=== PATIENT | female | born 1935 | race Caucasian/White ===

== ENCOUNTER 2016-09-04 13:42 | Inpatient (IN) | payer MEDICARE, OTHER ==
[~2016-09-04] VITALS: Ht 149.9 cm; Wt 65.8 kg
[~2016-09-04 13:42] MED LIST: AMLO-147 PO; ASPI-664 PO; CALC-378 PO; DICL100G37 TOP; DOCU-144 PO; ENAL20TA PO; FER325 PO; GABA100C14 PO; GLIP5TAB82 PO; METF-382 PO; PRAV10TA43 PO; SITA50TA2 PO; [UNRECOGNIZED DRUG - CODE] TP
[2016-09-04 15:57] VITALS: BP 146/67; PULSE 77; RESP 18
[2016-09-04 16:06] VITALS: Ht 149.9 cm; Wt 65.8 kg
[2016-09-04] MEDS ORDERED: DONE10TA7 PO (17:19)
[2016-09-04] MEDS ORDERED: VANCOMYCIN IV PER PHARMACY XX SCH (17:30)
[2016-09-04] MEDS ORDERED: NITROGLYCERIN (SL) 0.4 MG TAB SL PRN (17:30)
[2016-09-04] MEDS ORDERED: ONDANSETRON 4 MG INJ IV PRN (17:30)
[2016-09-04] MEDS ORDERED: hydrALAzine 20 MG INJ IV PRN (17:30)
[2016-09-04] MEDS ORDERED: HYDROCODONE/APAP (5/325) TAB PO PRN (17:30)
[2016-09-04] MEDS ORDERED: DOCUSATE SODIUM 100 MG CAP PO PRN (17:30)
[2016-09-04] MEDS ORDERED: MAGNESIUM HYDROXIDE 30ML CUP PO PRN (17:30)
[2016-09-04] MEDS ORDERED: ALBUTEROL/IPRATROPIUM (NEB) 3 ML AMP HHN PRN (17:30)
[2016-09-04] MEDS ORDERED: NA PHOSPHATE/BIPHOS 133 ML ENEMA PR PRN (17:30)
[2016-09-04] MEDS ORDERED: NACL 0.9% 3 ML SYG IV SCH (17:30)
[2016-09-04] MEDS ORDERED: ACETAMINOPHEN 325 MG TAB PO PRN (17:30)
[2016-09-04] MEDS ORDERED: morphine 2 MG INJ IV PRN (17:30)
[2016-09-04] MEDS ORDERED: LORAZEPAM 2 MG INJ IV PRN (17:30)
[2016-09-04] MEDS ORDERED: VANCOMYCIN 1.25 GM in SOD CHLORIDE 0.9% 250 ML IVPB ONE (18:00)
[2016-09-04] MEDS ORDERED: GLUCOSE GEL 15 GRAM TUBE BUCCAL PRN (18:30)
[2016-09-04] MEDS ORDERED: GLUCOSE GEL 15 GRAM TUBE PO PRN ×2 (18:30)
[2016-09-04] MEDS ORDERED: GLUCAGON 1 MG INJ IM PRN (18:30)
[2016-09-04] MEDS ORDERED: DEXTROSE 50% 50 ML SYRINGE IV PRN ×2 (18:30)
[2016-09-04] MEDS: CALCIUM/VITAMIN D (500/200) TAB PO SCH ×2 (18:34→20:25)
[2016-09-04] MEDS: SOD CHLORIDE 0.45% 1,000 ML IV SCH (18:35)
[2016-09-04 18:41] LABS: CREATININE 0.93 mg/dl (0.44-1.00)
[2016-09-04] MEDS: GUAIFENESIN 20 MG/ML 5ML CUP PO PRN (20:08)
[2016-09-04] MEDS: ATORVASTATIN 10 MG TAB PO SCH (20:25)
[2016-09-04] MEDS: FAMOTIDINE 20 MG INJ IV SCH (20:25)
[2016-09-04] MEDS: GABAPENTIN 100 MG CAP PO SCH (20:25)
[2016-09-04] MEDS: DONEPEZIL 10 MG TAB PO SCH (20:26)
[2016-09-04] MEDS: INSULIN ASPART [NOVOLOG] 3 ML PEN SC SCH (20:26)
[2016-09-04] MEDS: DICLOFENAC SODIUM 1% GEL 100 GM TUBE TP SCH (20:28)
[2016-09-04 20:29] VITALS: BP 147/71; RESP 16
[2016-09-05] MEDS: ACCUCHECK XX SCH (02:00)
[2016-09-05] MEDS: SOD CHLORIDE 0.45% 1,000 ML IV SCH ×2 (05:40→11:36)
[2016-09-05 05:47] LABS: POTASSIUM 3.8 mmol/L (3.5-5.1)
[2016-09-05 05:49] LABS: CREATININE 0.83 mg/dl (0.44-1.00)
[2016-09-05 05:50] LABS: CALCIUM 8.7 mg/dl (8.4-10.2); CHOL/HDL RATIO 4.8 RATIO; MAGNESIUM 1.8 mg/dl (1.7-2.5); PHOSPHORUS 3.2 mg/dl (2.5-4.9)
[2016-09-05 06:20] LABS: THYROID STIMULATING HORMONE 3.81 MIU/L (0.465-4.680)
[2016-09-05 06:57] LABS: BASOPHILS % 0.6 % (0.0-2.0); EOSINOPHILS # 0.3 10^3/ul (0.0-0.5); EOSINOPHILS % 4.9 % (0.0-7.0); HEMATOCRIT 33.6 % (37.0-47.0); HEMOGLOBIN 10.8 g/dl (12.0-16.0); LYMPHOCYTES % 19.6 % (15.0-51.0); MEAN CORPUSCULAR HEMOGLOBIN 28.5 pg (29.0-33.0); MEAN CORPUSCULAR HGB CONC 32.1 g/dl (32.0-37.0); MEAN CORPUSCULAR VOLUME 88.7 fl (82.0-101.0); MEAN PLATELET VOLUME 11.3 fl (7.4-10.4); MONOCYTE # 0.5 10^3/ul (0.3-0.9); MONOCYTES % 8.7 % (0.0-11.0); NEUTROPHIL # 3.5 10^3/ul (1.6-7.5); NEUTROPHILS % 65.6 % (39.0-77.0); PLATELET COUNT 260 10^3/UL (140-440); RED BLOOD COUNT 3.79 10^6/ul (4.20-5.40); RED CELL DISTRIBUTION WIDTH 14.2 % (11.5-14.5); WHITE BLOOD COUNT 5.3 10^3/ul (4.8-10.8)
[2016-09-05 07:22] VITALS: BP 175/77; RESP 18
--- NOTE | 2016-09-05 07:38 | HP ---
DATE OF ADMISSION: 09/04/2016 CHIEF COMPLAINT: Right facial swelling. HISTORY OF PRESENT ILLNESS: An 81-year-old female with past medical history of hypertension, type 2 diabetes, high cholesterol, and dementia who was sent over from an outside hospital due to insuranc e purposes. She presented to the outside hospital earlier today after complaining that she develope d fever 8 days ago and also started having facial swelling that began 5 days ago. She says she has been able to both drink liquids and eat food normally. She denies any trauma to the area. She has dentures but denies any pain to the dentures. She has not been able to see a primary care doctor no r dentist over the last 7 or 8 days. The swelling has been getting progressively worse but denied a ny chest pain or shortness of breath. No fevers or chills. No nausea or vomiting. No upper or low er GI bleeding. No diarrhea or constipation. When she went to the outside hospital earlier today, she had a CAT scan performed, specifically CT of the neck with IV contrast showed right parotiditis, so the right parotid gland was inflamed. There was also sinus mucosal thickening but no focal flui d collection. She was given a dose of IV antibiotics, vancomycin. She was also found with some mil d renal insufficiency and leukocytosis as well. PAST MEDICAL HISTORY: As stated above. ALLERGIES: NO KNOWN DRUG ALLERGIES. MEDICATIONS AT HOME: 1. Donepezil 10 mg at bedtime. 2. Ferrous sulfate 325 mg daily. 3. Amlodipine 10 mg daily. 4. Enalapril 20 mg daily. 5. Pravastatin 10 mg daily. 6. Aspirin 81 mg daily. 7. Voltaren gel 2 grams topically t.i.d. 8. Gabapentin 100 mg at bedtime. 9. Colace 100 mg daily. 10. Metformin 500 mg b.i.d. 11. Januvia 50 mg daily. 12. Hydrocortisone 1%. PAST SURGICAL HISTORY: She has had a hernia repair in the past. FAMILY HISTORY: Noncontributory. SOCIAL HISTORY: Negative for smoking, drinking, or IV drug abuse. PHYSICAL EXAMINATION: VITAL SIGNS: T-max 98.9, pulse 77, respirations 18, blood pressure 146/67, saturating at 99% on rinku m air. GENERAL: The patient is lying in bed, answering questions appropriately, in no acute distress. HEENT: Pupils equal, round, react to light. Extraocular muscles intact. She has got some right fa cial swelling, tenderness to palpation in the right cheek area. NECK: Supple, no thyromegaly. LUNGS: Clear to auscultation bilaterally. CARDIOVASCULAR: S1, S2 heard. No rubs or gallops. ABDOMEN: Soft, nontender, nondistended. Normal bowel sounds. No rebound or guarding. MUSCULOSKELETAL: No lower extremity edema bilaterally. NEUROLOGIC: No focal deficits. PSYCHIATRIC: Normal mood and affect. LABORATORIES: WBC 16.4, hemoglobin 10.8, hematocrit 32.9, platelets 298. Sodium 137, potassium 3.8 , chloride 100, CO2 of 25, BUN of 70, creatinine 1.1, glucose 133. UA showed trace leukocyte estera se positive. ASSESSMENT AND PLAN: This is an 81-year-old female coming in with right facial swelling and fever f or the last 5 to 8 days with signs of right parotid gland inflammation and infection. 1. Right facial swelling again secondary to right parotitis. We will put her on IV vancomycin for now, put her on IV fluids, give her pain control medications as well, [place], Tylenol, and morphine p .r.n. We will check TSH, A1c, lipid panel. Consider infectious disease consult as well. If there are any swallowing difficulties, we may need to get ENT, but for now, the patient appears to be hand ling liquids and solids. 2. Essential hypertension. Again, we will continue the patient's home medication as well. She is on hydralazine IV p.r.n. systolic greater than 160. 3. Type 2 diabetes. Check an A1c. Put her back on sliding scale insulin. 4. High cholesterol. Check a lipid panel. Continue cholesterol medicine. 5. Gastrointestinal prophylaxis, H2 edith. 6. Deep venous thrombosis prophylaxis. She is on SCDs. Get PT and OT consults as well. Dictated By: SERA ROWLEY Conf#: [id number] DID#: [id number]
[2016-09-05] MEDS: INSULIN ASPART [NOVOLOG] 3 ML PEN SC SCH ×4 (08:15→21:00)
[2016-09-05] MEDS: FERROUS SULFATE (EC) 325 MG TAB PO SCH (08:26)
[2016-09-05] MEDS: ASPIRIN (EC) 81 MG TAB PO SCH (08:26)
[2016-09-05] MEDS: FAMOTIDINE 20 MG INJ IV SCH (08:26)
[2016-09-05] MEDS: AMLODIPINE 10 MG TAB PO SCH (08:26)
[2016-09-05] MEDS: CALCIUM/VITAMIN D (500/200) TAB PO SCH ×3 (08:26→21:33)
[2016-09-05] MEDS: DICLOFENAC SODIUM 1% GEL 100 GM TUBE TP SCH ×3 (08:29→21:33)
--- NOTE | 2016-09-05 09:28 | PN ---
Date/Time of Note Date/Time of Note DATE: 09/05/16 TIME: 09:23 Assessment/Plan VTE Prophylaxis VTE Prophylaxis Intervention: SCD's Lines/Catheters IV Catheter Type (from Nrs): Peripheral IV Assessment/Plan Chief Complaint/Hosp Course ASSESSMENT AND PLAN: This is an 81-year-old female coming in with right facial swelling and fever for the last 5 to 8 days with signs of right parotid gland inflammation and infection. 1. Right facial swelling - again secondary to right parotitis - improving - continue IV vancomycin for now, IV fluids, give her pain control medications as well, [place], Tylenol, and morphine p.r.n. If there are any swallowing difficulties, we may need to get ENT, but for now, the patient appears to be handling liquids and solids. 2. Essential hypertension - improved - continue the patient's home medication as well. She is on hydralazine IV p.r.n. systolic greater than 160. 3. Type 2 diabetes.A1c = 6.3 - Put her back on sliding scale insulin. 4. High cholesterol - f/u lipid panel. Continue cholesterol medicine. 5. Gastrointestinal prophylaxis, H2 edith. 6. Deep venous thrombosis prophylaxis. She is on SCDs. F/u PT and OT consult rec's Problems: Subjective 24 Hr Interval Summary Free Text/Dictation Pt has less facial pain, no fevers, tolerating diet, no SOB. Exam/Review of Systems Vital Signs Vitals Vital Signs Date Time Temp Pulse Resp B/P Pulse Ox O2 Delivery O2 Flow Rate FiO2 09/05/16 07:22 98.1 67 18 175/77 94 09/04/16 15:57 Room Air Intake and Output 09/04/16 09/04/16 09/05/16 15:00 23:00 07:00 Intake Total 825 ml Balance 825 ml Exam GENERAL: The patient is walking in hallway, NAD HEENT: Pupils equal, round, react to light. Extraocular muscles intact. Less tenderness and less right facial swelling. NECK: Supple, no thyromegaly. LUNGS: Clear to auscultation bilaterally. CARDIOVASCULAR: S1, S2 heard. No rubs or gallops. ABDOMEN: Soft, nontender, nondistended. Normal bowel sounds. No rebound or guarding. MUSCULOSKELETAL: No lower extremity edema bilaterally. NEUROLOGIC: No focal deficits. PSYCHIATRIC: Normal mood and affect. Results Result Diagram: 09/05/16 0445 09/05/16 0445 Results 24 hrs Laboratory Tests Test 09/04/16 17:35 09/04/16 18:27 09/04/16 20:24 09/05/16 04:45 Blood Urea Nitrogen 14 14 Creatinine 0.93 0.83 Free Thyroxine 1.37 Bedside Glucose 132 148 Anion Gap 13 Basophils # 0.0 Basophils % 0.6 Calcium Level 8.7 Carbon Dioxide Level 25 Chloride Level 106 Cholesterol Level 127 Cholesterol/HDL Ratio 4.8 Eosinophils # 0.3 Eosinophils % 4.9 Glucose Level 123 HDL Cholesterol 26 L Hematocrit 33.6 L Hemoglobin 10.8 L Hemoglobin A1c 6.3 H LDL Cholesterol, Calculated 77 Lymphocytes # 1.0 Lymphocytes % 19.6 Magnesium Level 1.8 Mean Corpuscular Hemoglobin 28.5 L Mean Corpuscular Hemoglobin Concent 32.1 Mean Corpuscular Volume 88.7 Mean Platelet Volume 11.3 H Monocytes # 0.5 Monocytes % 8.7 Neutrophils # 3.5 Neutrophils % 65.6 Nucleated Red Blood Cells # 0.0 Nucleated Red Blood Cells % 0.0 Phosphorus Level 3.2 Platelet Count 260 Potassium Level 3.8 Red Blood Count 3.79 L Red Cell Distribution Width 14.2 Sodium Level 140 Thyroid Stimulating Hormone (TSH) 3.810 Triglycerides Level 119 White Blood Count 5.3 Test 09/05/16 08:20 Bedside Glucose 104 Medications Medications Current Medications Ondansetron HCl (Zofran Inj) 4 mg Q6H PRN IV NAUSEA AND/OR VOMITING; Start 09/04 at 17:30 Acetaminophen (Tylenol Tab) 650 mg Q6H PRN PO PAIN LEVEL 1-3 OR FEVER; Start at 17:30 Acetaminophen/ Hydrocodone Bitart ([place] (5/325)) 1 tab Q6H PRN PO MODERATE PAIN LEVEL 4-6; Start 09/04/16 at 17:30 Morphine Sulfate (morphine) 2 mg Q4H PRN IV SEVERE PAIN LEVEL 7-10; Start at 17:30 Docusate Sodium (Colace) 100 mg Q12H PRN PO CONSTIPATION; Start 09/04/16 at 17: 30 Magnesium Hydroxide (Milk Of Mag) 30 ml DAILY PRN PO CONSTIPATION; Start at 17:30 Sodium Biphosphate/ Sodium Phosphate (Fleet Enema) 133 ml DAILY PRN UT CONSTIPATION; Start 09/04/16 at 17:30 Famotidine 20 mg 20 mg DAILY IV Last administered on 09/05/16 08:26; Admin Dose 20 MG; Start 09/04/16 at 21:00 Sodium Chloride (1/2 NS) 1,000 ml @ 75 mls/hr [id number] IV Last administered on 09/04/16 18:35; Admin Dose 75 MLS/HR; Start 09/04/16 at 17:10 Lorazepam (Ativan) 0.5 mg Q6H PRN IV ANXIETY; Start 09/04/16 at 17:30 Vancomycin HCl (Vanco Iv Per Pharmacy) VANCOMYCIN PER PHARMACY NOTE XX ; Start 09/04/16 at 17:30 Hydralazine HCl (Apresoline) 10 mg Q6H PRN IV ELEVATED BLOOD PRESSURE; Start at 17:30 Nitroglycerin (Nitroglycerin (Sl Tab) 0.4 Mg) 1 tab Q5M PRN SL ANGINA; Start at 17:30 Amlodipine Besylate (Norvasc) 10 mg DAILY PO Last administered on 09/05/16 08: 26; Admin Dose 10 MG; Start 09/05/16 at 09:00 Aspirin (Halfprin) 81 mg DAILY PO Last administered on 09/05/16 08:26; Admin Dose 81 MG; Start 09/05/16 at 09:00 Diclofenac Sodium (Voltaren 1% Gel) 2 gm TID TP Last administered on 09/05/16 08:29; Admin Dose 2 GM; Start 09/04/16 at 21:00 Donepezil HCl (Aricept) 10 mg QHS PO Last administered on 09/04/16 20:26; Admin Dose 10 MG; Start 09/04/16 at 21:00 Ferrous Sulfate (Ferrous Sulfate (Ec)) 325 mg DAILY PO Last administered on 09/05 08:26; Admin Dose 325 MG; Start 09/05/16 at 09:00 Gabapentin (Neurontin) 100 mg QHS PO Last administered on 09/04/16 20:25; Admin Dose 100 MG; Start 09/04/16 at 21:00 Calcium/Vitamin D (Oyster Shell/ Vit-D (500/200)) 1 tab TID PO Last administered on 09/05/16 08:26; Admin Dose 1 TAB; Start 09/04/16 at 18:30 Atorvastatin Calcium (Lipitor) 10 mg DAILY@21 PO Last administered on 09/04/16 20:25; Admin Dose 10 MG; Start 09/04/16 at 21:00 Diagnostic Test (Pha) (Accucheck) 1 ea 02 XX ; Start 09/05/16 at 02:00 Miscellaneous Information 1 ea NOTE XX ; Start 09/04/16 at 18:30 Glucose (Glutose) 15 gm Q15M PRN PO DECREASED GLUCOSE; Start 09/04/16 at 18:30 Glucose (Glutose) 22.5 gm Q15M PRN PO DECREASED GLUCOSE; Start 09/04/16 at 18:30 Dextrose (D50w Syringe) 25 ml Q15M PRN IV DECREASED GLUCOSE; Start 09/04/16 at 18:30 Dextrose (D50w Syringe) 50 ml Q15M PRN IV DECREASED GLUCOSE; Start 09/04/16 at 18:30 Glucagon (Glucagen) 1 mg Q15M PRN IM DECREASED GLUCOSE; Start 09/04/16 at 18:30 Glucose (Glutose) 15 gm Q15M PRN BUCCAL DECREASED GLUCOSE; Start 09/04/16 at 18: 30 Guaifenesin 200 mg 200 mg Q4H PRN PO COUGH Last administered on 09/04/16 20:08 ; Admin Dose 200 MG; Start 09/04/16 at 19:00 Vancomycin HCl/ Sodium Chloride (Vancocin/NS) 150 ml @ 75 mls/hr Q24H IVPB ; Start 09/05/16 at 18:00 SERA GLORIA Sep 05, 2016 09:28
[2016-09-05] MEDS: GUAIFENESIN 20 MG/ML 5ML CUP PO PRN ×2 (12:02→19:30)
[2016-09-05] MEDS ORDERED: VANCOMYCIN 750 MG in SOD CHLORIDE 0.9% 150 ML IVPB SCH (18:00)
[2016-09-05 19:18] VITALS: BP 171/76; RESP 18
[2016-09-05] MEDS: DONEPEZIL 10 MG TAB PO SCH (21:32)
[2016-09-05] MEDS: ATORVASTATIN 10 MG TAB PO SCH (21:33)
[2016-09-05] MEDS: GABAPENTIN 100 MG CAP PO SCH (21:33)
[2016-09-05 23:00] VITALS: BP 150/70; PULSE 72; RESP 18
[2016-09-06] MEDS: ACCUCHECK XX SCH (02:00)
[2016-09-06 03:41] VITALS: BP 180/75; PULSE 67; RESP 18
[2016-09-06] MEDS: GUAIFENESIN 20 MG/ML 5ML CUP PO PRN ×3 (03:41→12:09)
[2016-09-06 05:09] VITALS: BP 159/74; PULSE 62; RESP 17
--- NOTE | 2016-09-06 06:50 | PDOCDIS ---
Discharge Instructions CONDITION Patient Condition: Stable HOME CARE INSTRUCTIONS: Special Diet: CARB CONTROL ACTIVITY: Activity Restrictions: Slowly Increase Activity FOLLOW UP/APPOINTMENTS Appointments Take your medications as prescribed, and see your doctor in the clinic in 1 week. SERA GLORIA Sep 06, 2016 06:50
[2016-09-06] MEDS ORDERED: CLIN-73 PO (06:51)
[2016-09-06] MEDS ORDERED: CIPR500T4 PO (06:51)
[2016-09-06] MEDS ORDERED: GUAI-637 PO (06:51)
[2016-09-06] MEDS ORDERED: BENZ1LOZ52 MM (06:51)
[2016-09-06 06:59] LABS: BASOPHILS % 0.6 % (0.0-2.0); EOSINOPHILS # 0.3 10^3/ul (0.0-0.5); EOSINOPHILS % 6.3 % (0.0-7.0); HEMATOCRIT 34.5 % (37.0-47.0); HEMOGLOBIN 11.7 g/dl (12.0-16.0); LYMPHOCYTES # 1.2 10^3/ul (0.8-2.9); LYMPHOCYTES % 25.5 % (15.0-51.0); MEAN CORPUSCULAR HEMOGLOBIN 29.5 pg (29.0-33.0); MEAN CORPUSCULAR HGB CONC 33.9 g/dl (32.0-37.0); MEAN PLATELET VOLUME 7.7 fl (7.4-10.4); MONOCYTE # 0.5 10^3/ul (0.3-0.9); MONOCYTES % 11.5 % (0.0-11.0); NEUTROPHIL # 2.5 10^3/ul (1.6-7.5); NEUTROPHILS % 56.1 % (39.0-77.0); PLATELET COUNT 349 10^3/UL (140-440); RED BLOOD COUNT 3.97 10^6/ul (4.20-5.40); RED CELL DISTRIBUTION WIDTH 14.4 % (11.5-14.5); UNCORRECTED WBC 4.5 10^3/ul (4.8-10.8); WHITE BLOOD COUNT 4.5 10^3/ul (4.8-10.8)
[2016-09-06 07:06] LABS: CONDITION 1
[2016-09-06 07:27] VITALS: BP 174/80; RESP 20
[2016-09-06 07:48] LABS: CALCIUM 9.2 mg/dl (8.4-10.2); CREATININE 0.82 mg/dl (0.44-1.00); POTASSIUM 3.6 mmol/L (3.5-5.1)
[2016-09-06] MEDS: FAMOTIDINE 20 MG INJ IV SCH (07:56)
[2016-09-06] MEDS: FERROUS SULFATE (EC) 325 MG TAB PO SCH (07:56)
[2016-09-06] MEDS: ASPIRIN (EC) 81 MG TAB PO SCH (07:56)
[2016-09-06] MEDS: AMLODIPINE 10 MG TAB PO SCH (07:56)
[2016-09-06] MEDS: INSULIN ASPART [NOVOLOG] 3 ML PEN SC SCH ×2 (07:58→12:12)
[2016-09-06] MEDS: DICLOFENAC SODIUM 1% GEL 100 GM TUBE TP SCH ×2 (07:59→12:04)
[2016-09-06] MEDS: CALCIUM/VITAMIN D (500/200) TAB PO SCH ×2 (08:36→12:04)
--- NOTE | 2016-09-06 08:49 | DS ---
DATE OF ADMISSION: 09/04/2016 DATE OF DISCHARGE: 09/06/2016 HISTORY OF PRESENT ILLNESS: The patient is an 81-year-old female transferred from outside hospital on 09/04/2016 and being discharged home on 09/06/2016 pending results of CBC this morning. The donny ent was complaining of right facial swelling for a week prior to admission. She was found with righ t parotiditis, right parotid gland inflammation and infection. She was admitted to med/surg floor, placed on broad spectrum antibiotics. Over the course of her hospital stay, swelling and pain sympt oms improved. Her leukocytosis improved. She had no fevers. She was able to ambulate and tolerate a p.o. diet. She did have some cough symptoms as well, and that was treated with cough suppressant . Her blood pressure was slightly elevated, but that was treated with her home blood pressure medic enoc as well as p.r.n. hydralazine. Because the patient is clinically improved, if her CBC this mor rosa is normal, she will be discharged home today in improved condition. DISCHARGE MEDICATIONS: She will be sent with 1. Cepacol throat lozenges q. 2 hours p.r.n. 2. Ciprofloxacin 500 mg b.i.d. for 7 days. 3. Clindamycin 450 mg p.o. q. 8 hours for 7 days. 4. Robitussin 200 mg p.o. q. 4 p.r.n. She will continue 5. Amlodipine 10 mg daily. 6. Aspirin 81 mg daily. 7. Calcium plus vitamin D 1 tab t.i.d. 8. Voltaren gel 2 grams topical t.i.d. 9. Colace 100 mg daily. 10. Donepezil 10 mg at bedtime. 11. Enalapril 20 mg daily. 12. Ferrous sulfate 325 mg daily. 13. Gabapentin 100 mg at bedtime. 14. Metformin 500 mg b.i.d. 15. Pravastatin 10 mg daily. 16. Januvia 50 mg daily. FOLLOWUP: She needs to follow up with primary care doctor in the clinic in the next 1 to 2 weeks. FINAL DIAGNOSES: 1. Right parotiditis after experiencing right facial swelling, now improving. 2. Essential hypertension. 3. Type 2 diabetes. A1c of 6.3. 4. High cholesterol. 5. Dementia. Time spent discharging patient was 40 minutes. Dictated By: SERA ROWLEY Conf#: [id number] DID#: [id number]
[2016-09-06] MEDS: SOD CHLORIDE 0.45% 1,000 ML IV SCH ×2 (09:10→11:36)
== END 2016-09-06 15:30 | disposition home or self-care (01) | DRG 156 ==
LOC: MS2 15:42
PROVIDERS: ADMIT Internal Medicine; ATTEND Internal Medicine
DX: K11.20 Sialoadenitis, unspecified (principal); F03.90 Unspecified dementia, unspecified severity, without behavioral disturbance, psychotic disturbance, mood disturbance, and anxiety; E11.9 Type 2 diabetes mellitus without complications; I10 Essential (primary) hypertension; E78.00 Pure hypercholesterolemia, unspecified
CPT/HCPCS: 80048; 80061; 82565; 82962; 83036; 83735; 84100; 84439; 84443; 84520; 85025; 92610; 97162; J0360; J1815; J3370; J7050

== ENCOUNTER 2017-04-05 01:48 | Inpatient (IN) | payer MEDICARE, OTHER ==
[~2017-04-05] VITALS: Ht 152.4 cm; Wt 72.6 kg
[~2017-04-05 01:48] MED LIST changes: +BENZ1LOZ52 MM; +CIPR500T4 PO; +CLIN-73 PO; +DONE10TA7 PO; -GLIP5TAB82 PO; +GUAI-637 PO; -METF-382 PO; +METF500T4 PO
[2017-04-05 04:14] VITALS: BP 136/63; RESP 20
[2017-04-05] MEDS ORDERED: DOCUSATE SODIUM 100 MG CAP PO PRN (04:30)
[2017-04-05] MEDS ORDERED: ONDANSETRON 4 MG INJ IV PRN (04:30)
[2017-04-05] MEDS ORDERED: ACETAMINOPHEN 325 MG TAB PO PRN (04:30)
[2017-04-05] MEDS ORDERED: GLUCOSE GEL 15 GRAM TUBE BUCCAL PRN (06:00)
[2017-04-05] MEDS ORDERED: DEXTROSE 50% 50 ML SYRINGE IV PRN ×2 (06:00)
[2017-04-05] MEDS ORDERED: GLUCOSE GEL 15 GRAM TUBE PO PRN ×2 (06:00)
[2017-04-05] MEDS ORDERED: GLUCAGON 1 MG INJ IM PRN (06:00)
[2017-04-05] MEDS: CEFTRIAXONE 1 GM/NS 50 ML IVPB SCH ×2 (06:15→18:08)
[2017-04-05] MEDS: SOD CHLORIDE 0.9% 1,000 ML IV SCH ×2 (06:15→17:00)
[2017-04-05 06:30] LABS: BASOPHILS % 0.1 % (0.0-2.0); EOSINOPHILS # 0.1 10^3/ul (0.0-0.5); EOSINOPHILS % 0.8 % (0.0-7.0); HEMATOCRIT 35.7 % (37.0-47.0); HEMOGLOBIN 11.8 g/dl (12.0-16.0); LYMPHOCYTES # 1.4 10^3/ul (0.8-2.9); LYMPHOCYTES % 10.2 % (15.0-51.0); MEAN CORPUSCULAR HEMOGLOBIN 29.4 pg (29.0-33.0); MEAN CORPUSCULAR HGB CONC 33.1 g/dl (32.0-37.0); MEAN PLATELET VOLUME 10.9 fl (7.4-10.4); MONOCYTE # 0.9 10^3/ul (0.3-0.9); MONOCYTES % 6.3 % (0.0-11.0); NEUTROPHILS % 82.1 % (39.0-77.0); PLATELET COUNT 181 10^3/UL (140-415); RED BLOOD COUNT 4.01 10^6/ul (4.20-5.40); RED CELL DISTRIBUTION WIDTH 13.7 % (11.5-14.5); WHITE BLOOD COUNT 13.5 10^3/ul (4.8-10.8)
[2017-04-05] MEDS ORDERED: CEFTRIAXONE 1 GM INJ IVPB SCH (06:30)
[2017-04-05 06:54] LABS: ALBUMIN 3.4 g/dl (3.3-4.9); ALBUMIN/GLOBULIN RATIO 0.82; BILIRUBIN,INDIRECT 0.2 mg/dl (0-1.1); BILIRUBIN,TOTAL 0.2 mg/dl (0.2-1.3); CALCIUM 8.6 mg/dl (8.4-10.2); CREATININE 1.18 mg/dl (0.44-1.00); PHOSPHORUS 3.3 mg/dl (2.5-4.9); POTASSIUM 4.2 mmol/L (3.5-5.1); TOTAL PROTEIN 7.5 g/dl (6.1-8.1)
[2017-04-05] MEDS: ACCU-CHEK XX SCH ×4 (07:20→20:13)
[2017-04-05 07:50] VITALS: BP 126/58; RESP 19
[2017-04-05] MEDS: INSULIN ASPART [NOVOLOG] 3 ML PEN SC SCH ×4 (07:50→20:13)
[2017-04-05] MEDS ORDERED: INSULIN ASPART [NOVOLOG] 3 ML PEN SC SCH (07:50)
[2017-04-05] MEDS: GABAPENTIN 100 MG CAP PO SCH (08:43)
[2017-04-05] MEDS: ASPIRIN 81 MG TAB PO SCH (08:43)
[2017-04-05] MEDS: CALCIUM/VITAMIN D (500/200) TAB PO SCH ×2 (08:43→20:12)
[2017-04-05] MEDS: FERROUS SULFATE (EC) 325 MG TAB PO SCH (08:43)
[2017-04-05] MEDS: AMLODIPINE 10 MG TAB PO SCH (08:44)
[2017-04-05] MEDS: INSULIN GLARGINE [LANtus] 3 ML PEN SC SCH (08:50)
[2017-04-05] MEDS: ENALAPRIL 20 MG TAB PO SCH (08:50)
[2017-04-05] MEDS ORDERED: DICLOFENAC SODIUM 1% GEL 100 GM TUBE TP PRN (09:00)
--- NOTE | 2017-04-05 09:18 | HP ---
Date/Time of Note Date/Time of Note DATE: 04/05/17 TIME: 09:13 Assessment/Plan VTE Prophylaxis VTE Prophylaxis Intervention: SCD's Lines/Catheters IV Catheter Type (from Nrs): Saline Lock Assessment/Plan Assessment/Plan 1. Sepsis, as evidenced by leukocytosis and fever, secondary to UTI (based on outside hospital's report) -IV antibiotic and IV fluids -Follow-up culture results 2. SABI: Likely from dehydration -Continue IV fluids -Monitor H&H closely -Nephrology consult and renal ultrasound as needed 3. History of hypertension -Continue antihypertensives adjustment as needed 4. Type 2 diabetes -Insulin while in house 5. History of dyslipidemia -Continue home med HPI/ROS Admit Date/Time Admit Date/Time Apr 05, 2017 at 03:56 Hx of Present Illness This is an 81-year-old female with a history of hypertension, type 2 diabetes, dyslipidemia, dementia who initially went to an outside hospital complaining of generalized weakness and fever. [place]. Patient was noted to be lethargic and weak and as such she was taken to an outside hospital where she was found to be febrile with a temperature of 102, with elevated white counts. She was diagnosed with UTI and there was transferred here because of insurance reason. Currently she said she is feeling little better but stated she feels nervous and is still somehow weak. . PMH/Family/Social Past Medical History Medical History: diabetes, high cholesterol, hypertension Social History Alcohol Use: none Smoking Status: Never smoker Drug Use: none Exam/Review of Systems Vital Signs Vitals Vital Signs Date Time Temp Pulse Resp B/P Pulse Ox O2 Delivery O2 Flow Rate FiO2 04/05/17 07:50 101.1 85 19 126/58 98 Intake and Output 04/04/17 04/04/17 04/05/17 15:00 23:00 07:00 Intake Total 290 ml Balance 290 ml Exam Constitutional: other (Appears slightly anxious. No acute distress) Head: atraumatic, normocephalic Eyes: EOMI, PERRL Respiratory: clear to auscultation, normal air movement Cardiovascular: nl pulses, regular rate and rhythm Gastrointestinal: non-tender, soft Extremities: normal pulses Labs Result Diagram: 04/05/17 0515 04/05/17 0515 Medications Medications Current Medications Amlodipine Besylate (Norvasc) 10 mg DAILY PO Last administered on 04/05/17 08: 44; Admin Dose 10 MG; Start 04/05/17 at 09:00 Aspirin (Aspirin) 81 mg DAILY PO Last administered on 04/05/17 08:43; Admin Dose 81 MG; Start 04/05/17 at 09:00 Calcium/Vitamin D (Oyster Shell/ Vit-D (500/200)) 1 tab BID PO Last administered on 04/05/17 08:43; Admin Dose 1 TAB; Start 04/05/17 at 09:00 Docusate Sodium (Colace) 100 mg BID PRN PO constipation; Start 04/05/17 at 04:30 Donepezil HCl (Aricept) 10 mg DAILY PO ; Start 04/05/17 at 21:00 Enalapril Maleate (Vasotec) 20 mg DAILY PO Last administered on 04/05/17 08:50 ; Admin Dose 20 MG; Start 04/05/17 at 09:00 Ferrous Sulfate (Ferrous Sulfate (Ec)) 325 mg DAILY PO Last administered on 04/05 08:43; Admin Dose 325 MG; Start 04/05/17 at 09:00 Gabapentin (Neurontin) 100 mg DAILY PO Last administered on 04/05/17 08:43; Admin Dose 100 MG; Start 04/05/17 at 09:00 Atorvastatin Calcium (Lipitor) 10 mg HS PO ; Start 04/05/17 at 21:00 Ondansetron HCl (Zofran Inj) 4 mg Q6H PRN IV NAUSEA AND/OR VOMITING; Start 04/05 at 04:30 Acetaminophen (Tylenol Tab) 650 mg Q6H PRN PO PAIN AND OR ELEVATED TEMP Last administered on 04/05/17 05:46; Admin Dose 650 MG; Start 04/05/17 at 04:30 Insulin Glargine (Lantus) 10 unit DAILY@08 SC Last administered on 04/05/17 08: 50; Admin Dose 10 UNIT; Start 04/05/17 at 08:00 Diclofenac Sodium (Voltaren 1% Gel) 4 gm QID PRN TP PRN; Start 04/05/17 at 09:00 Miscellaneous Information 1 ea NOTE XX ; Start 04/05/17 at 06:00 Glucose (Glutose) 15 gm Q15M PRN PO DECREASED GLUCOSE; Start 04/05/17 at 06:00 Glucose (Glutose) 22.5 gm Q15M PRN PO DECREASED GLUCOSE; Start 04/05/17 at 06:00 Dextrose (D50w Syringe) 25 ml Q15M PRN IV DECREASED GLUCOSE; Start 04/05/17 at 06:00 Dextrose (D50w Syringe) 50 ml Q15M PRN IV DECREASED GLUCOSE; Start 04/05/17 at 06:00 Glucagon (Glucagen) 1 mg Q15M PRN IM DECREASED GLUCOSE; Start 04/05/17 at 06:00 Glucose 15 gm 15 gm Q15M PRN BUCCAL DECREASED GLUCOSE; Start 04/05/17 at 06:00 Ceftriaxone Sodium 50 ml @ 100 mls/hr Q12H IVPB Last administered on 04/05/17 06:15; Admin Dose 100 MLS/HR; Start 04/05/17 at 06:30 Sodium Chloride (NS) 1,000 ml @ 100 mls/hr Q10H IV Last administered on 06:15; Admin Dose 100 MLS/HR; Start 04/05/17 at 06:30; Stop 04/06/17 at 06:30 Diagnostic Test (Pha) (Accu-Chek) 1 ea 02 XX ; Start 04/06/17 at 02:00 KWASI LUCAS MD Apr 05, 2017 09:18
--- NOTE | 2017-04-05 11:38 | QN ---
Documentation Comment Patient seen Dtr at bedside, ill looking, ambulant. Continue current mgt. ONEAL WEST Apr 05, 2017 11:37
[2017-04-05 13:14] LABS: ADD UMIC YES; UR ASCORBIC ACID NEGATIVE (NEGATIVE); UR BACTERIA FEW /HPF (NONE SEEN); UR BILIRUBIN (Dip) NEGATIVE (NEGATIVE); UR BLOOD (Dip) 1+ mg/dL (NEGATIVE); UR CLARITY SLIGHTLY CLOUDY (CLEAR); UR COLOR YELLOW (YELLOW); UR GLUCOSE (Dip) NEGATIVE (NEGATIVE); UR KETONES (Dip) NEGATIVE (NEGATIVE); UR LEUKOCYTE ESTERASE (Dip) TRACE Leu/ul (NEGATIVE); UR NITRITE (Dip) NEGATIVE (NEGATIVE); UR RBC 8 /HPF (0-5); UR SPECIFIC GRAVITY (Dip) 1.012 (1.003-1.030); UR TOTAL PROTEIN (Dip) 2+ mg/dl (NEGATIVE); UR UROBILINOGEN (Dip) NEGATIVE (NEGATIVE)
[2017-04-05] MEDS ORDERED: SOD CHLORIDE 0.9% 1,000 ML IV SCH (16:00)
[2017-04-05] MEDS: ATORVASTATIN 10 MG TAB PO SCH (20:12)
[2017-04-05 20:18] VITALS: BP 156/72; RESP 16
[2017-04-05] MEDS: DONEPEZIL 10 MG TAB PO SCH (22:52)
[2017-04-06] MEDS: ACCU-CHEK XX SCH ×5 (01:46→20:15)
[2017-04-06 02:08] VITALS: BP 136/65; RESP 14
[2017-04-06] MEDS: SOD CHLORIDE 0.9% 1,000 ML IV SCH (02:30)
[2017-04-06 05:51] LABS: BASOPHILS % 0.3 % (0.0-2.0); EOSINOPHILS # 0.2 10^3/ul (0.0-0.5); EOSINOPHILS % 1.6 % (0.0-7.0); HEMATOCRIT 36.6 % (37.0-47.0); HEMOGLOBIN 12.2 g/dl (12.0-16.0); LYMPHOCYTES # 1.1 10^3/ul (0.8-2.9); LYMPHOCYTES % 9.7 % (15.0-51.0); MEAN CORPUSCULAR HEMOGLOBIN 30.3 pg (29.0-33.0); MEAN CORPUSCULAR HGB CONC 33.3 g/dl (32.0-37.0); MEAN PLATELET VOLUME 11.7 fl (7.4-10.4); MONOCYTE # 1.1 10^3/ul (0.3-0.9); MONOCYTES % 9.9 % (0.0-11.0); RED BLOOD COUNT 4.02 10^6/ul (4.20-5.40); RED CELL DISTRIBUTION WIDTH 13.7 % (11.5-14.5); WHITE BLOOD COUNT 10.8 10^3/ul (4.8-10.8)
[2017-04-06 05:53] LABS: PLATELET COUNT 142 10^3/UL (140-415); POSITIVE DIFF @See below
[2017-04-06 05:58] LABS: CALCIUM 8.3 mg/dl (8.4-10.2); CREATININE 0.92 mg/dl (0.44-1.00); POTASSIUM 4.1 mmol/L (3.5-5.1)
[2017-04-06] MEDS: CEFTRIAXONE 1 GM/NS 50 ML IVPB SCH ×2 (06:02→17:44)
[2017-04-06 07:41] VITALS: BP 161/75; RESP 18
[2017-04-06] MEDS: INSULIN ASPART [NOVOLOG] 3 ML PEN SC SCH ×5 (07:50→20:12)
[2017-04-06] MEDS: GABAPENTIN 100 MG CAP PO SCH (08:35)
[2017-04-06] MEDS: ASPIRIN 81 MG TAB PO SCH (08:35)
[2017-04-06] MEDS: FERROUS SULFATE (EC) 325 MG TAB PO SCH (08:35)
[2017-04-06] MEDS: CALCIUM/VITAMIN D (500/200) TAB PO SCH ×2 (08:36→20:09)
[2017-04-06] MEDS: AMLODIPINE 10 MG TAB PO SCH (08:36)
[2017-04-06] MEDS: ENALAPRIL 20 MG TAB PO SCH (08:37)
[2017-04-06] MEDS: INSULIN GLARGINE [LANtus] 3 ML PEN SC SCH (08:41)
[2017-04-06 11:52] VITALS: BP 130/61; RESP 18
[2017-04-06 14:14] VITALS: BP 175/76; RESP 18
[2017-04-06 19:20] VITALS: BP 179/79; RESP 18
[2017-04-06] MEDS: ATORVASTATIN 10 MG TAB PO SCH (20:09)
--- NOTE | 2017-04-06 22:55 | PN ---
Date/Time of Note Date/Time of Note DATE: 04/06/17 TIME: 22:54 Assessment/Plan VTE Prophylaxis VTE Prophylaxis Intervention: SCD's Lines/Catheters IV Catheter Type (from Nrs): Saline Lock Urinary Cath still in place: No Assessment/Plan Assessment/Plan 1. Sepsis, as evidenced by leukocytosis and fever, secondary to UTI (based on outside hospital's report) 2. SABI: Likely from dehydration: resolved 3. History of hypertension: controlled 4. Type 2 diabetes: fair inhouse control 5. History of dyslipidemia PLAN: patient still fairly lethargic UTI improving Plan to d/c tomorrow on oral abx Subjective 24 Hr Interval Summary Free Text/Dictation fee;s very tired, needs assistance with ambulation still Exam/Review of Systems Vital Signs Vitals Vital Signs Date Time Temp Pulse Resp B/P Pulse Ox O2 Delivery O2 Flow Rate FiO2 04/06/17 19:20 99.1 74 18 179/79 95 Intake and Output 04/05/17 04/05/17 04/06/17 14:59 22:59 06:59 Intake Total 1900 ml 1240 ml Output Total 1260 ml Balance 640 ml 1240 ml Exam Constitutional: alert, oriented Psych: nl mood/affect Head: normocephalic Neck: supple Respiratory: clear to auscultation Cardiovascular: nl pulses, regular rate and rhythm Gastrointestinal: bowel sounds, non-tender, soft Extremities: No edema Neurological: lethargic Results Result Diagram: 04/06/17 0442 04/06/172 Results 24 hrs Laboratory Tests Test 04/06/17 04:42 04/06/17 08:34 04/06/17 12:47 04/06/17 17:36 White Blood Count 10.8 Red Blood Count 4.02 L Hemoglobin 12.2 Hematocrit 36.6 L Mean Corpuscular Volume 91.0 Mean Corpuscular Hemoglobin 30.3 Mean Corpuscular Hemoglobin Concent 33.3 Red Cell Distribution Width 13.7 Platelet Count 142 # Mean Platelet Volume 11.7 H Neutrophils % 78.0 H Lymphocytes % 9.7 L Monocytes % 9.9 Eosinophils % 1.6 Basophils % 0.3 Nucleated Red Blood Cells % 0.0 Neutrophils # (Manual) 8.5 H Lymphocytes # 1.1 Monocytes # 1.1 H Eosinophils # 0.2 Basophils # 0.0 Nucleated Red Blood Cells # 0.0 Sodium Level 141 Potassium Level 4.1 Chloride Level 112 H Carbon Dioxide Level 23 Anion Gap 10 Blood Urea Nitrogen 15 # Creatinine 0.92 Glucose Level 91 Hemoglobin A1c 5.7 Calcium Level 8.3 L Magnesium Level 2.0 Bedside Glucose 92 137 170 Test 04/06/17 20:11 Bedside Glucose 122 Medications Medications Current Medications Amlodipine Besylate (Norvasc) 10 mg DAILY PO Last administered on 04/06/17 08: 36; Admin Dose 10 MG; Start 04/05/17 at 09:00 Aspirin (Aspirin) 81 mg DAILY PO Last administered on 04/06/17 08:35; Admin Dose 81 MG; Start 04/05/17 at 09:00 Calcium/Vitamin D (Oyster Shell/ Vit-D (500/200)) 1 tab BID PO Last administered on 04/06/17 20:09; Admin Dose 1 TAB; Start 04/05/17 at 09:00 Docusate Sodium (Colace) 100 mg BID PRN PO constipation; Start 04/05/17 at 04:30 Donepezil HCl (Aricept) 10 mg DAILY PO Last administered on 04/05/17 22:52; Admin Dose 10 MG; Start 04/05/17 at 21:00 Enalapril Maleate (Vasotec) 20 mg DAILY PO Last administered on 04/06/17 08:37 ; Admin Dose 20 MG; Start 04/05/17 at 09:00 Ferrous Sulfate (Ferrous Sulfate (Ec)) 325 mg DAILY PO Last administered on 04/06 08:35; Admin Dose 325 MG; Start 04/05/17 at 09:00 Gabapentin (Neurontin) 100 mg DAILY PO Last administered on 04/06/17 08:35; Admin Dose 100 MG; Start 04/05/17 at 09:00 Atorvastatin Calcium (Lipitor) 10 mg HS PO Last administered on 04/06/17 20:09 ; Admin Dose 10 MG; Start 04/05/17 at 21:00 Ondansetron HCl (Zofran Inj) 4 mg Q6H PRN IV NAUSEA AND/OR VOMITING; Start 04/05 at 04:30 Acetaminophen (Tylenol Tab) 650 mg Q6H PRN PO PAIN AND OR ELEVATED TEMP Last administered on 04/05/17 05:46; Admin Dose 650 MG; Start 04/05/17 at 04:30 Insulin Glargine (Lantus) 10 unit DAILY@08 SC Last administered on 04/06/17 08: 41; Admin Dose 10 UNIT; Start 04/05/17 at 08:00 Diclofenac Sodium (Voltaren 1% Gel) 4 gm QID PRN TP PRN; Start 04/05/17 at 09:00 Miscellaneous Information 1 ea NOTE XX ; Start 04/05/17 at 06:00 Glucose (Glutose) 15 gm Q15M PRN PO DECREASED GLUCOSE; Start 04/05/17 at 06:00 Glucose (Glutose) 22.5 gm Q15M PRN PO DECREASED GLUCOSE; Start 04/05/17 at 06:00 Dextrose (D50w Syringe) 25 ml Q15M PRN IV DECREASED GLUCOSE; Start 04/05/17 at 06:00 Dextrose (D50w Syringe) 50 ml Q15M PRN IV DECREASED GLUCOSE; Start 04/05/17 at 06:00 Glucagon (Glucagen) 1 mg Q15M PRN IM DECREASED GLUCOSE; Start 04/05/17 at 06:00 Glucose 15 gm 15 gm Q15M PRN BUCCAL DECREASED GLUCOSE; Start 04/05/17 at 06:00 Ceftriaxone Sodium (Rocephin) 50 ml @ 100 mls/hr Q12H IVPB Last administered on 04/06/17 17:44; Admin Dose 100 MLS/HR; Start 04/05/17 at 06:30 Diagnostic Test (Pha) (Accu-Chek) 1 ea 02 XX ; Start 04/06/17 at 02:00 ONEAL WEST Apr 06, 2017 22:55
[2017-04-07] MEDS: ACCU-CHEK XX SCH ×4 (02:00→17:39)
[2017-04-07 02:11] VITALS: BP 161/70
[2017-04-07] MEDS: CEFTRIAXONE 1 GM/NS 50 ML IVPB SCH ×2 (05:14→18:17)
[2017-04-07 06:15] LABS: CALCIUM 8.8 mg/dl (8.4-10.2); CREATININE 0.82 mg/dl (0.44-1.00); POTASSIUM 3.7 mmol/L (3.5-5.1)
[2017-04-07 07:39] LABS: BASOPHILS % 0.4 % (0.0-2.0); EOSINOPHILS # 0.3 10^3/ul (0.0-0.5); EOSINOPHILS % 3.9 % (0.0-7.0); HEMATOCRIT 39.3 % (37.0-47.0); HEMOGLOBIN 12.3 g/dl (12.0-16.0); LYMPHOCYTES % 13.9 % (15.0-51.0); MEAN CORPUSCULAR HEMOGLOBIN 28.7 pg (29.0-33.0); MEAN CORPUSCULAR HGB CONC 31.3 g/dl (32.0-37.0); MEAN CORPUSCULAR VOLUME 91.8 fl (82.0-101.0); MEAN PLATELET VOLUME 11.4 fl (7.4-10.4); MONOCYTES % 14.2 % (0.0-11.0); NEUTROPHILS % 67.3 % (39.0-77.0); PLATELET COUNT 135 10^3/UL (140-415); RED BLOOD COUNT 4.28 10^6/ul (4.20-5.40); RED CELL DISTRIBUTION WIDTH 13.7 % (11.5-14.5); WHITE BLOOD COUNT 7.2 10^3/ul (4.8-10.8)
[2017-04-07 07:43] LABS: POSITIVE DIFF @See below
[2017-04-07] MEDS: INSULIN ASPART [NOVOLOG] 3 ML PEN SC SCH ×3 (07:50→17:43)
[2017-04-07] MEDS: INSULIN GLARGINE [LANtus] 3 ML PEN SC SCH ×2 (08:00→08:24)
[2017-04-07 08:04] VITALS: BP 177/80; RESP 20
[2017-04-07] MEDS: DONEPEZIL 10 MG TAB PO SCH (08:20)
[2017-04-07] MEDS: CALCIUM/VITAMIN D (500/200) TAB PO SCH (08:20)
[2017-04-07] MEDS: FERROUS SULFATE (EC) 325 MG TAB PO SCH (08:20)
[2017-04-07] MEDS: GABAPENTIN 100 MG CAP PO SCH (08:21)
[2017-04-07] MEDS: AMLODIPINE 10 MG TAB PO SCH (08:21)
[2017-04-07] MEDS: ASPIRIN 81 MG TAB PO SCH (08:21)
[2017-04-07] MEDS: ENALAPRIL 20 MG TAB PO SCH (08:21)
[2017-04-07 14:33] VITALS: BP 172/77; RESP 20
[2017-04-07] MEDS ORDERED: AMOX1TAB10 PO ×2 (18:30→18:39)
--- NOTE | 2017-04-07 18:41 | PDOCDIS ---
Discharge Instructions DIAGNOSIS Discharge Diagnosis Sepsis urinary tract infection CONDITION Patient Condition: Stable HOME CARE INSTRUCTIONS: Diet Instructions: Reduced Calorie ACTIVITY: Activity Restrictions: Slowly Increase Activity Rest between Activity FOLLOW UP/APPOINTMENTS Follow-up Plan Followup with your primary doctor within the next 1-2 weeks. If you don't have one please let someone know, we can give you resources that may help you pick one. You may call Dr Richy Cooper's office. he's accepting new patients Name, Degree: Richy Cooper MD Specialty: Internal Medicine Comments: Office Address: [address] [place] [address] [place], [place] [id number] Office Office You may also call your insurance company to assign one to you. Review your medication list with your nurse before leaving and if you need new prescriptions please let your nurse know. I may have made changes to your home medications or given you new prescriptions, please let your primary doctor know as well. Stay compliant with your medications and report any side effects to your PCP or pharmacist. Return to the ER if you have any concerns and cannot reach your doctors or call your insurance company, they usually have a nurse that can help you. ONEAL WEST Apr 07, 2017 18:41
--- NOTE | 2017-04-07 20:26 | DS ---
DATE OF ADMISSION: 04/05/2017 DATE OF DISCHARGE: 04/07/2017 ADMISSION DIAGNOSES: 1. Sepsis secondary to urinary tract infection. 2. Acute kidney injury from dehydration. 3. Hypertension. 4. Type 2 diabetes. 5. History of dyslipidemia. 6. History of dementia. DISCHARGE DIAGNOSES: 1. Sepsis secondary to urinary tract infection. Sepsis is resolved. Urinary tract infection is on treatment and cultures grew out Enterococcus species 2. Acute kidney injury from dehydration. 3. Hypertension. 4. Type 2 diabetes. 5. History of dyslipidemia. 6. History of dementia. CONSULTANTS: None. INTERVENTIONS: Aggressive IV hydration, as well as IV antibiotic therapy. DISPOSITION: Home. DISCHARGE MEDICATIONS: 1. Augmentin 875/125, 1 tab twice a day for 7 more days. 2. Amlodipine 10 daily. 3. Aspirin 81 daily. 4. Cepacol lozenges as needed. 5. Calcium with vitamin D 1 tab 3 times a day. 6. Diclofenac sodium as needed. 7. Colace 100 by mouth twice a daily. 8. Donepezil 10 mg at bedtime. 9. Enalapril 20 daily. 10. Ferrous sulfate 325 daily. 11. Gabapentin 100 at bedtime. 12. Robitussin as needed. 13. Metformin 500 twice a day. 14. Pravastatin 10 daily. 15. Januvia 50 daily. HOSPITAL COURSE: In summary, this patient was referred to us due to insurance reasons. After she had presented to an outside emergency room with a fever and was found to have a urinary tract infection and she was septic. She was treated with antibiotics and has done well. She is stable for discharge at this time. DISCHARGE CONDITION: Stable. FOLLOWUP: Follow up with PMD in 1-2 weeks. Dictated By: Ryan Carr MD /[email or web address]/mat /Document#: [id number]
== END 2017-04-07 19:28 | disposition home or self-care (01) | DRG 872 ==
LOC: MS1 03:56
PROVIDERS: ADMIT Internal Medicine; ATTEND Internal Medicine
DX: A41.9 Sepsis, unspecified organism (principal); N17.9 Acute kidney failure, unspecified; F03.90 Unspecified dementia, unspecified severity, without behavioral disturbance, psychotic disturbance, mood disturbance, and anxiety; N39.0 Urinary tract infection, site not specified; E11.9 Type 2 diabetes mellitus without complications; I10 Essential (primary) hypertension; E78.5 Hyperlipidemia, unspecified; B95.2 Enterococcus as the cause of diseases classified elsewhere; E86.0 Dehydration
CPT/HCPCS: 80048; 80053; 81001; 82962; 83036; 83735; 84100; 85025; 87040; 87086; J0696; J1815; J7030

== ENCOUNTER 2018-01-12 02:39 | Inpatient (IN) | END 2018-01-13 15:30 | disposition home or self-care (01) | DRG 291 ==

== ENCOUNTER 2018-02-01 17:17 | Inpatient (IN) | END 2018-02-04 16:45 | disposition home health service (06) | DRG 690 ==

== ENCOUNTER 2018-02-27 14:07 | Inpatient (IN) | END 2018-03-02 19:40 | disposition home health service (06) | DRG 871 ==